=== PATIENT | female | born 1950 | race Caucasian/White ===

== ENCOUNTER 2019-02-17 18:53 | Emergency (ER) | payer OTHER, MEDICARE ==
[~2019-02-17] VITALS: Ht 165.1 cm; Wt 102.1 kg
[2019-02-17] MEDS ORDERED: BUSPIRONE HCL10 MG PO (19:22)
[2019-02-17] MEDS ORDERED: TRIAMTERENE-HC1 EAC2 PO (19:22)
[2019-02-17] MEDS ORDERED: PROZAC20 MG PO (19:22)
[2019-02-17 19:33] LABS: ABSOLUTE NEUTROPHILS 4.8 thou/uL (1.4-8.2); BASOPHILS 0.8 % (0.0-2.0); EOSINOPHILS 2.2 % (0.0-3.0); HEMATOCRIT 37.9 % (37.0-47.0); HEMOGLOBIN 12.7 gm/dL (12.0-15.0); LYMPHOCYTES 27.4 % (24.0-44.0); MCH 26.9 pg (26.0-34.0); MCHC 33.4 g/dL (28.0-37.0); MCV 80.6 fL (80.0-100.0); MONOCYTES 8.5 % (1.0-8.0); PLATELET COUNT 213 thou/uL (150-400); POLYS 61.1 % (36.0-66.0); RBC 4.71 mil/uL (4.20-5.00); RDW 14.8 % (10.5-14.5); WBC 7.9 thou/uL (4.0-11.0)
[2019-02-17 19:41] LABS: ANION GAP 7 mmol/L (7-16); BUN 15 mg/dL (7-18); CHLORIDE 103 mmol/L (98-107); CO2 29 mmol/L (21-32); CREATININE 1.1 mg/dL (0.6-1.0); GLUCOSE 115 mg/dL (74-106); POTASSIUM 3.7 mmol/L (3.5-5.1); SODIUM 139 mmol/L (136-145); TROPONIN-I <0.06 ng/mL (<0.06)
[2019-02-17 20:39] VITALS: BP 150/82
--- NOTE | 2019-02-18 10:22 | EKG ---
[address] [place] [address] ELECTROCARDIOGRAM REPORT Name: JOSH LIPSCOMB Room #: [facility]P [id number] ������������������ Admission: 02/17/19 ������������������ Attend Phys: Discharge: 02/17/19 ������������������ Date of : 48 Report #: [id number] ����������������������������������������������������������������� [id number] THIS REPORT FOR: //name// [facility] ED Test Date: 2019-02-17 Test Time: 19:03:07 Pat Name: JOSH LIPSCOMB Department: Room: Gender: F Online Project Manager: [place] : 1950 Requested By: Jonatan Alexandra Order Number: [id number] MD: Navjot Koo Measurements Intervals [place] Rate: 71 P: 8 IA: 185 QRS: 31 QRSD: 105 T: 22 QT: 436 QTc: 474 Interpretive Statements Sinus rhythm Normal tracing No previous ECG available for comparison Electronically Signed On 02-18-2019 10:22:25 CDT by Navjot Koo [email or web address] ��������������������������������������������� <ELECTRONICALLY SIGNED> ���������������������������������������� By: Navjot Koo MD, [facility] ��������������������������������������������� 02/18/19 1022 1903 1903 Navjot Koo MD, FACC /EPI
== END 2019-02-17 20:39 | disposition home or self-care (01) ==
LOC: ER 18:53
PROVIDERS: Emergency Medicine
DX: R07.89 Other chest pain (principal); I10 Essential (primary) hypertension